=== PATIENT | male | born 1980 | race Two or more races ===

== ENCOUNTER 2022-07-17 03:45 | Emergency (ER) | payer MEDICAID ==
[~2022-07-17] VITALS: Ht 182.9 cm; Wt 90.9 kg
[2022-07-17 03:48] VITALS: BP 131/85
[2022-07-17] MEDS ORDERED: CEPH-585 PO (04:01)
[2022-07-17] MEDS ORDERED: SULF1TAB49 PO (04:01)
== END 2022-07-17 04:07 | disposition home or self-care (01) ==
LOC: ER 03:46
DX: L02.414 Cutaneous abscess of left upper limb (principal); F17.200 Nicotine dependence, unspecified, uncomplicated; Z79.899 Other long term (current) drug therapy
CPT/HCPCS: 99283

== ENCOUNTER 2023-10-14 19:17 | Emergency (ER) | payer MEDICAID ==
[~2023-10-14] VITALS: Ht 180.3 cm; Wt 79.5 kg
[2023-10-14 20:28] VITALS: BP 120/84; PULSE 90; RESP 16; TEMP 98.1; O2SAT 98
== END 2023-10-14 20:31 | disposition home or self-care (01) ==
LOC: ER 19:17
DX: S20.214A Contusion of middle front wall of thorax, initial encounter (principal); Z02.89 Encounter for other administrative examinations; Z72.89 Other problems related to lifestyle; X58.XXXA Exposure to other specified factors, initial encounter; Y93.89 Activity, other specified; Y92.89 Other specified places as the place of occurrence of the external cause; Y99.8 Other external cause status
CPT/HCPCS: 71045; 93005; 99283

== ENCOUNTER 2023-11-03 17:04 | Emergency (ER) | payer MEDICAID ==
[~2023-11-03] VITALS: Ht 182.9 cm; Wt 91.3 kg
[2023-11-03 18:17] VITALS: BP 155/99; PULSE 96; RESP 15; TEMP 98; O2SAT 99
[2023-11-03] MEDS ORDERED: CLIN150C2 PO (19:13)
[2023-11-03] MEDS: clindamycin 150mg capsule PO ONE (19:22)
[2023-11-03] MEDS: acetaminophen 325mg tablet PO ONE (19:22)
[2023-11-03] MEDS: ketorolac trometh. 30mg/ml inj. IM ONE (19:22)
== END 2023-11-03 19:30 | disposition home or self-care (01) ==
LOC: ER 17:05
DX: K04.7 Periapical abscess without sinus (principal)
CPT/HCPCS: 96372; 99283; J1885